=== PATIENT | female | born 1985 | race Caucasian/White ===

== ENCOUNTER 2017-08-04 18:43 | Inpatient (IN) | payer BC, OTHER ==
[~2017-08-04] VITALS: Ht 154.9 cm; Wt 73.5 kg
--- NOTE | 2017-08-04 00:17 | NUR ---
PRN ZOFRAN SL AND MAALOX PATIENT C/O HEARTRBURN AND NAUSEA BUT NO EMESIS , WILL MONITOR FOR EFFECTIVENESS
[2017-08-04 22:30] VITALS: BP 142/88
--- NOTE | 2017-08-04 22:30 | NUR ---
PRE-ADMISSION NOTE VS BP-144/88 T-99. P-88 R-18 PA-11/16. PATIENT INTOXICATED. PATIENT AMBULATORY AND GAIT IS STEADY. PATIENT 'S SPEECH CLEAR AND ANSWER QUESTIONS APPROPRIATELY. PATIENT IS ALLERGIC TO SHRIMP, NORVASC, NSAIDS AND CLINDAMYCIN. PATIENT WITH HISTORY OF STRESS INDUCED SEIZURE , LAST ONE WAS 4 WEEKS AGO. PATIENT IS HERE FOR ALCOHOL (VODKA). SHE TAKES PROSCRIBED XANAX AND OXYCODONE INTERMITTENTLY. WILL CONTINUE ADMISSION ON 3RD FLOOR.
[2017-08-04] MEDS ORDERED: LOPERAMIDE HCL 2 MG CAPSULE PO PRN ×2 (22:45)
[2017-08-04] MEDS ORDERED: MIRALAX 17 GM POWD.PACK PO PRN (22:45)
[2017-08-04] MEDS ORDERED: SUMATRIPTAN SUCCINATE 50 MG TABLET PO PRN (22:45)
[2017-08-04] MEDS ORDERED: MAGNESIUM HYDROXIDE 30 ML LIQUID UDC PO PRN (22:45)
[2017-08-04] MEDS ORDERED: hydrALAZINE HCL 50 MG TABLET PO PRN (22:45)
[2017-08-04] MEDS ORDERED: DICYCLOMINE HCL 20 MG TABLET PO PRN (22:45)
[2017-08-04] MEDS ORDERED: LORAZEPAM 1 MG TABLET PO PRN (22:45)
[2017-08-04] MEDS ORDERED: LORAZEPAM 2 MG/1 ML VIAL IM PRN (22:45)
[2017-08-04] MEDS ORDERED: MAG HYDROX/AL HYDROX/SIMETH 30 ML LIQUID UDC PO PRN (22:45)
[2017-08-04] MEDS ORDERED: ONDANSETRON 4 MG/2 ML VIAL IM PRN (22:45)
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
[2017-08-04 23:38] LABS: BASOPHILS % (AUTO) 0.6 % (0.0-2.0); EOSINOPHILS % (AUTO) 0.3 % (0.0-7.0); HEMATOCRIT 34.3 % (36.7-47.1); HEMOGLOBIN 11.4 g/dL (12.5-16.3); LYMPHOCYTES % (AUTO) 19.3 % (20.5-51.5); MEAN CORPUSCULAR HEMOGLOBIN 34.2 uug (23.8-33.4); MEAN CORPUSCULAR HGB CONC 33 g/dL (32.5-36.3); MEAN CORPUSCULAR VOLUME 102.5 fL (73.0-96.2); MONOCYTES # (AUTO) 0.3 K/uL (2.0-10.0); MONOCYTES % (AUTO) 6.1 % (0.0-11.0); NEUTROPHILS # (AUTO) 3.7 K/uL (1.8-8.9); NEUTROPHILS % (AUTO) 73.7 % (38.5-71.5); PLATELET COUNT (AUTO) 192 K/uL (152-348); RED BLOOD CELL COUNT(AUTO) 3.34 MIL/uL (4.06-5.63)
[2017-08-04] MEDS ORDERED: LORAZEPAM 1 MG TABLET PO SCH (23:45)
[2017-08-05] MEDS ORDERED: THIAMINE HCL 200 MG/2 ML VIAL IM ONE
[2017-08-05] MEDS: ONDANSETRON ODT 4 MG TAB.RAPDIS SL PRN ×2 (00:17→22:10)
[2017-08-05 00:23] LABS: ALANINE AMINOTRANSFERASE 137 U/L (16-63); ALKALINE PHOSPHATASE 270 U/L (50-136); AMYLASE 32 U/L (25-115); ASPARTATE AMINOTRANSFERASE 393 U/L (15-37); CARBON DIOXIDE 26 mmol/L (21-32); CHLORIDE 104 mmol/L (98-107); CREATININE 0.9 mg/dL (0.6-1.3); GLUCOSE 114 mg/dL (74-106); LIPASE 106 U/L (73-393); MAGNESIUM 1.3 mg/dL (1.8-2.4); POTASSIUM 3.3 mmol/L (3.5-5.1); TOTAL PROTEIN, SERUM 5.9 g/dL (6.4-8.2); UREA NITROGEN, BLOOD 7 mg/dL (7-18)
[2017-08-05 00:35] LABS: THYROID STIMULATING HORMONE 2.193 mIU/mL (0.358-3.740)
--- NOTE | 2017-08-05 01:17 | NUR ---
PRN ZOFRAN SL AND MAALOX PATIENT STATES ZOFRAN AND MAALOX, HELPFUL AND EFFECTIVE. NAUSEA CEASED.
[2017-08-05 01:43] LABS: *URINE HCG, QUAL NEGATIVE
[2017-08-05 01:50] LABS: ETHANOL < 3 MG/DL (0-0)
[2017-08-05] MEDS: ACETAMINOPHEN 325 MG TABLET PO PRN ×3 (02:15→20:52)
--- NOTE | 2017-08-05 02:15 | NUR ---
PRN TYLENOL AND ONE TIME ATIVAN PATIENT WAS GIVEN ONE TIME ATIVAN. PATIENT C/O HEADACHE AND MUSCLE ACHES. WILL MONITOR FOR EFFECTIVENESS
[2017-08-05] MEDS ORDERED: LORAZEPAM 1 MG TABLET PO SCH (02:30)
[2017-08-05 03:17] LABS: *AMPHETAMINE, URINE NEGATIVE (NEGATIVE); *CANNABINOID, URINE POSITIVE (NEGATIVE); *COCCAINE, URINE NEGATIVE (NEGATIVE); *OPIATE, URINE POSITIVE (NEGATIVE); *PHENCYCLIDINE SCREEN,URINE NEGATIVE (NEGATIVE)
[2017-08-05] MEDS ORDERED: PROP40TA7 PO (03:17)
[2017-08-05] MEDS ORDERED: TOPI100T PO (03:17)
[2017-08-05 03:18] LABS: *BARBITURATE, URINE NEGATIVE (NEGATIVE)
--- NOTE | 2017-08-05 03:19 | NUR ---
PRN HYDRALAZINE PATIENT C/O ANXIETY . BP NOTED 144/101 P- 97 . PRN HYDRALAZINE GIVEN. WILL MONITOR FOR EFFECTIVENESS, RELAXATION TECHNIQUE PROVIDED.
--- NOTE | 2017-08-05 03:31 | NUR ---
PRN IMITREX PATIENT C/O MIGRAINE HEADACHE . WILL MONITOR FOR EFFECTIVENESS
[2017-08-05 04:00] VITALS: BP 123/79
--- NOTE | 2017-08-05 04:31 | NUR ---
PRN IMITREX PATIENT STATES HEADACHE GONE. IN BED AT THIS TIME , RESTING. WILL CONTINUE TO MONITOR
--- NOTE | 2017-08-05 05:37 | NUR ---
PRN ATIVAN AND ROBAXIN ADMINISTRATION PATIENT ANXIOUS, RESTLESS, PANIC FEELING. CIWA 8 . RELAXATION TECHNIQUE PROVIDED. PATIENT C/O MUSCLE AND JOINT PAIN. WILL MONITOR FOR EFFECTIVENESS
[2017-08-05] MEDS: METHOCARBAMOL 750 MG TABLET PO PRN ×2 (05:46→22:11)
--- NOTE | 2017-08-05 06:37 | NUR ---
PRN ATIVAN AND ROBAXIN RE-ASSESSMENT PATIENT LESS ANXIOUS, IN BED RESTING, PATIENT STILL HAS MUSCLE AND JOINT PAIN, ROBAXIN INEFFECTIVE. WILL CONTINUE TO MONITOR. CIWA 5 AT THIS TIME.
--- NOTE | 2017-08-05 06:46 | NUR ---
PRN TYLENOL ADMINISTRATION PATIENT NOTED WITH TEMP-102.2. PRN TYLENOL GIVEN. COOLING MEASURES IN PROVIDED. DR. ANDRE MADE AWARE.
[2017-08-05] MEDS ORDERED: MAGNESIUM OXIDE 400 MG TABLET PO ONE (07:00)
[2017-08-05] MEDS ORDERED: POTASSIUM CHLORIDE 10 MEQ TAB.PRT.SR PO ONE (07:00)
[2017-08-05 07:47] LABS: *BLOOD, URINE NEGATIVE (NEGATIVE); *CLARITY,URINE CLOUDY (CLEAR); *COLOR,URINE Orange (YELLOW); *KETONES,URINE NEGATIVE (NEGATIVE); *PROTEIN,URINE 1+ (NEGATIVE); LEUKOCYTE ESTERASE ,URINE NEGATIVE (NEGATIVE); PH,URINE 5.5 (5.0-8.0); UGLUCOSE NEGATIVE (NEGATIVE)
--- NOTE | 2017-08-05 07:47 | NUR ---
END OF SHIFT NOTE PATIENT DID NOT SLEEP DURING SHIFT. FLUID INTAKE OF 1,100. VOIDED X 2. NO BM. PATIENT WAS GIVEN PRN ZOFRAN, , HYDRALAZINE , ATIVAN, ROBAXIN, MAALOX AND IMITREX. PATIENT NOTED WITH FEVER. UPON ADMISSION PATIENT'S TEMP WAS 99.0, AT 0400 , PATIENT HAD 100.9 AND AT 0646 TEMP WENT UP TO 102.2. TYLENOL WAS GIVEN X [address] ME[address]. [address] ANDRE WAS MADE AWARE, LABS ORDERED. PATIENT REFUSED VITAMIN B 1 IM, REFUSED FLU AND PNEUMONIA VACCINE. ENCOURAGE FLUIDS THROUGHOUT SHIFT. SAFETY MEASURES IN PLACE. CALL LIGHT IN REACH. WILL CONTINUE TO MONITOR. ENDORSED TO NEXT SHIFT FOR TYLENOL RE-ASSESSMENT .
[2017-08-05 07:49] LABS: BASOPHILS % (AUTO) 1.2 % (0.0-2.0); EOSINOPHILS % (AUTO) 0.1 % (0.0-7.0); HEMATOCRIT 32.1 % (36.7-47.1); HEMOGLOBIN 10.9 g/dL (12.5-16.3); LYMPHOCYTES # (AUTO) 1.4 K/uL (20.0-40.0); LYMPHOCYTES % (AUTO) 33.2 % (20.5-51.5); MEAN CORPUSCULAR HEMOGLOBIN 34.3 uug (23.8-33.4); MEAN CORPUSCULAR HGB CONC 34 g/dL (32.5-36.3); MEAN CORPUSCULAR VOLUME 101.4 fL (73.0-96.2); MONOCYTES # (AUTO) 0.4 K/uL (2.0-10.0); NEUTROPHILS # (AUTO) 2.2 K/uL (1.8-8.9); NEUTROPHILS % (AUTO) 54.5 % (38.5-71.5); RED BLOOD CELL COUNT(AUTO) 3.16 MIL/uL (4.06-5.63); WHITE BLOOD COUNT (AUTO) 4.1 K/uL (3.6-10.2)
[2017-08-05 07:55] LABS: PLATELET COUNT (AUTO) 134 K/uL (152-348)
[2017-08-05 08:00] VITALS: BP 146/93
[2017-08-05 08:02] LABS: BILIRUBIN,DIRECT 0.5 mg/dL (0.0-0.2); BILIRUBIN,TOTAL 0.9 mg/dL (0.2-1.0); CREATININE 0.7 mg/dL (0.6-1.3); PHOSPHOROUS 2.9 mg/dL (2.5-4.9); POTASSIUM 3.3 mmol/L (3.5-5.1); TOTAL PROTEIN, SERUM 4.9 g/dL (6.4-8.2)
--- NOTE | 2017-08-05 08:17 | NUR ---
LAB Riccardo Landry from lab called for results for lactic acid =2.4. made aware.
[2017-08-05 08:34] LABS: *BILIRUBIN,URIN 2+ (NEGATIVE)
[2017-08-05 08:37] LABS: NITRITE, URINE POSITIVE (NEGATIVE)
[2017-08-05 08:38] LABS: BACTERIA,URINE NONE SEEN /HPF (NONE SEEN); RBC,URINE 0-3 /HPF (0-3); SQUAMOUS EPITHELIAL CELL,UR MODERATE /HPF (NONE SEEN)
[2017-08-05 08:39] LABS: MUCUS,URINE MANY /LPF (0-FEW)
[2017-08-05] MEDS ORDERED: IV NS 1000 ML 1,000 ML IV ONE (08:45)
[2017-08-05] MEDS: PROPRANOLOL HCL 40 MG TABLET PO SCH ×2 (08:57→20:53)
[2017-08-05] MEDS: TOPIRAMATE 100 MG TABLET PO SCH ×2 (09:00→20:53)
[2017-08-05] MEDS: FOLIC ACID 1 MG TABLET PO SCH (09:00)
[2017-08-05] MEDS ORDERED: TUBERCULIN,PURIF.PROT.DERIV. 5 TU/0.1 ML TEST ID ONE (09:00)
[2017-08-05] MEDS: MULTIVITAMINS,THERAPEUTIC TABLET PO SCH (09:01)
[2017-08-05] MEDS: THIAMINE HCL 100 MG TABLET PO SCH (09:02)
[2017-08-05] MEDS: LORAZEPAM 1 MG TABLET PO SCH ×4 (09:02→20:52)
[2017-08-05] MEDS: LACTOBACILLUS RHAMNOSUS GG 1 EACH CAPSULE PO SCH ×2 (09:08→20:52)
[2017-08-05] MEDS ORDERED: OSELTAMIVIR PHOSPHATE 75 MG CAPSULE PO ONE (09:15)
--- NOTE | 2017-08-05 09:30 | NUR ---
START OF SHIFT Report received from shift coordinator nurse. Patient is alert and oriented X4. Received report that patient has high temp and received Tylenol on previous shift. Patients temp at 08:00 101.5. Swab done for influenza, strep and throat culture tests. Patient received AM meds. CIWA: Reports increasing anxiety for the isolation as she wants to go out and smoke. Patient reports anxiety, nausea, sweating, and headache. Refused IV access and IV fluids to be administered, meteorologist in charge and MD aware. Patient teaching provided for the importance of getting her the fluids but remains hesitant at this time. Patient agreed to take her One time does of tamiflu.
--- NOTE | 2017-08-05 10:09 | NUR ---
CLINICAL PHARMACY NOTE: VANCOMYCIN PHARMACY TO DOSE Subjective: To start vanco for this 31 y/o female for empiric therapy (spiked fever) Objective: height 154.9 cm weight 73.5 kg BUN 5 Scr 0.7 wbc 4.1 temp 101.5 Assessment/Plan Will start vanco 1250mg IVPB q13h for predicted vanco trough level of 16.4 mcg/ml at steady state. 1st dose is due today at 1030. Plan to draw vanco trough level before 4th dose (not yet ordered). Will monitor renal function & adjust mireille dose if needed. Will follow
[2017-08-05] MEDS ORDERED: VANCOMYCIN IV 1,250 MG in IV DEXTROSE 5% 500 ML IV SCH ×2 (10:30→13:30)
[2017-08-05] MEDS: LORAZEPAM 1 MG TABLET PO PRN ×4 (10:53→22:11)
--- NOTE | 2017-08-05 10:53 | NUR ---
PRN ATIVAN PO Patient complained of unresolved and increasing anxiety. Patient noted crying as well. CIWA 13. PRN Ativan 2mg po given.
[2017-08-05] MEDS: PIPERACILLIN/TAZOBACTAM/D5W 3.375 G in PREMIXED 1 EACH IV SCH ×2 (11:25→17:29)
--- NOTE | 2017-08-05 11:53 | NUR ---
REASSESSMENT PRN ATIVAN PO Patient reported anxiety improved. CIWA 7.
[2017-08-05 12:00] VITALS: BP 117/77
[2017-08-05] MEDS: PANTOPRAZOLE SODIUM 40 MG VIAL IV SCH (12:05)
--- NOTE | 2017-08-05 14:12 | NUR ---
PRN ZOFRAN IM Patient complained of nausea. PRN zofran IM was given. Will continue to monitor patient.
--- NOTE | 2017-08-05 14:42 | NUR ---
REASSESSMENT PRN ZOFRAN IM INJECTION Patient reports nausea improved. Med effective.
--- NOTE | 2017-08-05 14:56 | NUR ---
PRN ATIVAN PO Patient complained of unresolved and increasing anxiety. Patient noted crying as well. CIWA 13. PRN Ativan 2mg po given.
--- NOTE | 2017-08-05 15:56 | NUR ---
REASSESSMENT PRN ATIVAN PO Patient reported anxiety improved. CIWA 8.
[2017-08-05 16:00] VITALS: BP 141/90
[2017-08-05] MEDS: NICOTINE 21 MG/24HR PATCH TD SCH (16:13)
[2017-08-05] MEDS: NICOTINE POLACRILEX 4 MG GUM-PK OF TEN BC PRN (17:25)
--- NOTE | 2017-08-05 17:25 | NUR ---
PRN NICOTINE GUM Patient was craving to smoke. PRN nicotine gum given. Will continue to monitor patient.
--- NOTE | 2017-08-05 17:26 | NUR ---
PRN ATIVAN PO Patient complained of unresolved anxiety. Patient noted agitated, restless, CIWA = 15. PRN ativan 2mg po given. Will continue to monitor patient.
[2017-08-05] MEDS: IV NS 1000 ML 1,000 ML IV SCH (17:29)
--- NOTE | 2017-08-05 18:25 | NUR ---
REASSESSMENT PRN NICOTINE GUM Patient did not like the nicotine gum and complained of nausea after trying it. Patient discarded it. Not effective.
--- NOTE | 2017-08-05 18:26 | NUR ---
REASSESSMENT PRN ATIVAN PO Patient reported anxiety improved. CIWA 6.
--- NOTE | 2017-08-05 19:15 | NUR ---
Start of Shift Note: Received patient from day shift nurse. Patient is a 31 y.o female admitted on 08/04/17 for medically supervised withdrawal from ETOH, Opiates and Benzo's. Patient is alert & oriented x4. Patient is ambulatory with a steady gait. Patient is labile, has anxious & irritable mood, appears flushed and has clammy skin. Patient presented with sweating, chills, restlessness, nausea, reports 7/10 generalized body aches, and noted with fine tremors. Patient had some test done today and pt noted to be positive for influenza. Patient had IV inserted on left hand, patent and intact with running 0.9% NS at 125 cc/hr and on ATB Vancomycin & Zosyn. Patient tolerating IV ATB well. Patient also placed on isolation precaution. Pt on Ativan taper and tolerating well. Last CIWA 6. Pt received PRN Zofran, Nicotine patch and Ativan 3x during day shift. Encourage pt to increase fluid intake. Educated patient of current plan of care for the night. Safety measures in place. Will continue to monitor patient.
--- NOTE | 2017-08-05 19:26 | NUR ---
END OF SHIFT Patient on Ativan taper. Patient placed on isolation droplet precaution, positive flu test. Patient was provided with frequent teaching on droplet isolation as patient wants to come out of the room and go out to smoke cigarettes. Patient also requested to speak to his mother and verbalized desire to go home instead. MD, charge nurse and deputy director of nursing were aware of patients situation and spoke to patient. Patient also noted labile, agitated, and crying. PRN ativan 2MG given X3 this shift. Patient also offered nicotine patch and gum which she initially declined but later agreed to have the MD place the orders. Patient initially refused to start an IV access and receive IV fluids and antibiotic IV but later agreed having discussion with the deputy director of nursing. IV access started on L hand, g24, patent and dressing c/d/i. Patient received NS 0.9% bolus 1000 ml, followed by continuous infusion at 125ml/hr and scheduled antibiotic IVs given. Patient made requests to contact her mother and was provided with assistance. She requested some personal toiletries as well. Last CIWA 6. Last temp taken was 99.2 All needs met at this time. Call lights within reach and bed at low setting. business insurance agentoperations supervisor 2nd shift continue to monitor patient.
[2017-08-05 20:00] VITALS: BP 136/96
--- NOTE | 2017-08-05 20:52 | NUR ---
PRN Tylenol Patient noted with a tvpg=[id number]. Patient reports slight chills at this time. PRN Tylenol administered as ordered. Will continue to monitor patient.
[2017-08-05] MEDS: OSELTAMIVIR PHOSPHATE 75 MG CAPSULE PO SCH (21:02)
--- NOTE | 2017-08-05 21:52 | NUR ---
PRN Reassessment PRn medication effective. Temp 99.1 noted at this time. Will continue to monitor patient.
--- NOTE | 2017-08-05 22:11 | NUR ---
PRN Ativan, Robaxin & Zofran Patient noted to be very emotional & crying. Pt stated " I want to leave", redirected patient multiple times by staff members and finally convinced her to stay for the night. Pt is anxious and irritable, presented with generalized body aches, nausea, sweating, & fine tremors. CIWA 13 noted. PRN Ativan 2mg, Robaxin & Zofran administered as ordered. Will monitor for effectiveness of medication.
--- NOTE | 2017-08-05 23:11 | NUR ---
PRN Reassessment Pt awake in bed and verbalized slight improved in anxiety. Pt stable at this time. Safety measures in place. Will continue to monitor patient.
--- NOTE | 2017-08-05 23:11 | NUR ---
PRN Reassessment Patient verbalized improved nausea and decreasd in pain from 7/10 to 3/10. Patient in bed and appears comfortable. safety measures in place. Will continue to monitor patient.
[2017-08-06] VITALS: BP 133/88
[2017-08-06] MEDS ORDERED: VANCOMYCIN IV 1,250 MG in IV DEXTROSE 5% 500 ML IV SCH (00:30)
[2017-08-06] MEDS: LORAZEPAM 1 MG TABLET PO PRN ×2 (00:36→03:12)
--- NOTE | 2017-08-06 00:36 | NUR ---
PRN Ativan 2mg Patient attempted to discontinue IV access by herself and tried to leave room. Patient educated of disease process and compliance of isolation protocol. Pt stated "I am bored". Patient noted again with increased anxiety and agitation. CIWA 12 at this time. PRN Ativan 2mg PO administered as ordered. Will monitor for effectiveness of medication.
--- NOTE | 2017-08-06 01:36 | NUR ---
PRN Reassessment Patient still awake at this time. Patient verbalized decreased in anxiety after medication administration. Pt in bed and watching TV. Pt appears comfortable. Will continue to monitor patient.
[2017-08-06 03:10] VITALS: BP 123/90
[2017-08-06] MEDS: NICOTINE POLACRILEX 4 MG GUM-PK OF TEN BC PRN (03:12)
--- NOTE | 2017-08-06 03:12 | NUR ---
PRN Ativan 2mg & Nicotine gum Patient still awake at this time and noted with increased anxiety. Patient is craving to go to smoke and noted to be anxious and irritable. Patient continues on contact isolation. PRN Ativan 2mg and Nicotine gum administered as ordered. Will continue to monitor patient.
[2017-08-06] MEDS: PIPERACILLIN/TAZOBACTAM/D5W 3.375 G in PREMIXED 1 EACH IV SCH (03:15)
--- NOTE | 2017-08-06 04:12 | NUR ---
PRN Reassessment Patient still noted with anxiety. Pt still verbalized wanting to leave in the morning after she talks to the doctor. Pt stated " I am not ready to for this, I don't want to miss uzma together with my grandma". Educated patient the risk and benefits of completing treatment. Patient still refused. safety measures provided. Will continue to monitor patient.
[2017-08-06] MEDS ORDERED: PANTOPRAZOLE SODIUM 40 MG TABLET.DR PO SCH (07:00)
--- NOTE | 2017-08-06 07:06 | NUR ---
End of Shift Note: Patient is a 31 y.o female admitted on 08/04/17 for medically supervised withdrawal from ETOH, Opiates and Benzos. patient remains alert & oriented x4. Patient continues on her Ativan taper with no ARE noted. Last CI 12. Pt received PRN Robaxin, Zofran, Tylenol, Nicotine gum, & Ativan 2mg 3x during my shift. Pt presented with continues anxiety throughout the night, and did not sleep at all during my shift. Patient remained compliant with medications including PO and IV meds. Pt continues to receive IV fluids 0.9% NS at 125cc/hr. On contact isolation precaution as ordered for positive influenza. Pt had an episode of increased temperature and was given Tylenol and was effective. Continue to closely monitor vitals and s/s of withdrawal. Encourage pt to increase fluid intake. Pt had a fluid intake of 1000ml, Voided 4x with no bowel movement. All needs attended & met. Safety measures in place. Will continue to monitor patient. Addendum: 08/06/17 at 0717 by DIDIER CHONG RN ERROR: Pt on droplet precaution not contact
--- NOTE | 2017-08-06 07:10 | NUR ---
Start of Shift Ob Gyn Physician Assistant received report on 31 year old female admitted to [facility] on 08/04/17 for medical management of ETOH, Opiate and Benzodiazepine withdrawals. Pt endorses allergies to NSAIDS, Shrimp, Norvasc and Clindamycin, eats a regular diet and is a full code. PMH of Gastric sleeve, , HTN and migraines. PPH of anxiety, depression, PTSD, Bipolar and Panic Attacks. Pt also has a history of stress induced seizures. Pt currently on Ativan taper, tolerating well with last CIWA 12, recorded by NOC, per report. Pt currently with 24 gauge IV to left hand with 125 ml/hr of NS. Ob Gyn Physician Assistant encounters pt in pts room. Pt is A/O x4 and makes her needs known, needy and entitled. Pt is focused on AMA, due to room and patio restrictions because of testing positive for Influenza. Pt has made several requests of several staff members to facilitate her AMA discharge. Pt has a flat affect with an anxious mood. Staff splitting and demanding. Pt lacks insight and has a concrete thought pattern. Bed in low position with wheels locked and side rails up x2. Will continue to monitor, support and encourage according to plan of care. Addendum: 08/06/17 at 0902 by OUMAR MEDINA RN Pt was administered PRN medication of Ativan(anxiety) x3, Tylenol(fever), Nicotine gum, Robaxin(muscle aches) and Zofran(nausea) per NOC report.
[2017-08-06] MEDS: IV NS 1000 ML 1,000 ML IV SCH ×2 (07:20→07:21)
--- NOTE | 2017-08-06 07:22 | NUR ---
Non Administer Medications Pharmacy Helper performed a non-administration on NS bags, to be given on previous shift. Will continue to monitor, support and encourage according to plan of care
[2017-08-06 08:06] LABS: BASOPHILS % (AUTO) 0.7 % (0.0-2.0); EOSINOPHILS % (AUTO) 0.1 % (0.0-7.0); HEMATOCRIT 33.3 % (31.2-41.9); HEMOGLOBIN 11.2 g/dL (10.9-14.3); LYMPHOCYTES # (AUTO) 0.8 K/uL (20.0-40.0); LYMPHOCYTES % (AUTO) 30.8 % (20.5-51.5); MEAN CORPUSCULAR HEMOGLOBIN 34.3 uug (24.7-32.8); MEAN CORPUSCULAR HGB CONC 34 g/dL (32.3-35.6); MEAN CORPUSCULAR VOLUME 102.3 fL (75.5-95.3); MONOCYTES # (AUTO) 0.3 K/uL (2.0-10.0); MONOCYTES % (AUTO) 10.4 % (0.0-11.0); NEUTROPHILS # (AUTO) 1.6 K/uL (1.8-8.9); PLATELET COUNT (AUTO) 120 K/uL (179-408); RED BLOOD CELL COUNT(AUTO) 3.26 MIL/uL (3.63-4.92); WHITE BLOOD COUNT (AUTO) 2.7 K/uL (3.8-11.8)
[2017-08-06] MEDS: TOPIRAMATE 100 MG TABLET PO SCH (08:18)
[2017-08-06] MEDS: MULTIVITAMINS,THERAPEUTIC TABLET PO SCH (08:18)
[2017-08-06] MEDS: FOLIC ACID 1 MG TABLET PO SCH (08:18)
[2017-08-06] MEDS: THIAMINE HCL 100 MG TABLET PO SCH (08:18)
[2017-08-06] MEDS: OSELTAMIVIR PHOSPHATE 75 MG CAPSULE PO SCH (08:19)
[2017-08-06] MEDS: PROPRANOLOL HCL 40 MG TABLET PO SCH (08:19)
[2017-08-06] MEDS: NICOTINE 21 MG/24HR PATCH TD SCH (08:20)
[2017-08-06 08:27] LABS: BILIRUBIN,DIRECT 0.5 mg/dL (0.0-0.2); BILIRUBIN,TOTAL 0.8 mg/dL (0.2-1.0); CREATININE 0.7 mg/dL (0.6-1.3); MAGNESIUM 1.6 mg/dL (1.8-2.4); PHOSPHOROUS 2.8 mg/dL (2.5-4.9); POTASSIUM 3.1 mmol/L (3.5-5.1); TOTAL PROTEIN, SERUM 5.6 g/dL (6.4-8.2)
[2017-08-06 08:30] VITALS: BP 150/96
--- NOTE | 2017-08-06 08:45 | NUR ---
IV Removal Needlemaker received pt's Peripheral IV from left hand, with catheter intact. Pt tolerated without incident. Will continue to monitor, support and encourage according to plan of care.
[2017-08-06] MEDS: PANTOPRAZOLE SODIUM 40 MG VIAL IV SCH (09:00)
[2017-08-06] MEDS ORDERED: LORAZEPAM 1 MG TABLET PO SCH (09:00)
[2017-08-06] MEDS: LACTOBACILLUS RHAMNOSUS GG 1 EACH CAPSULE PO SCH (09:03)
[2017-08-06 09:07] LABS: BAND % (MANUAL) 3 % (0-10); LYMPHOCYTES % (MANUAL) 29 % (20-40); MONOCYTES % (MANUAL) 9 % (2-10); NEUTROPHILS % (MANUAL) 59 % (42-75)
[2017-08-06] MEDS ORDERED: POTASSIUM CHLORIDE 20 MEQ TAB.PRT.SR PO ONE (09:30)
[2017-08-06] MEDS ORDERED: MAGNESIUM OXIDE 400 MG TABLET PO ONE (09:30)
--- NOTE | 2017-08-06 10:25 | NUR ---
AMA Discharge Smelter Liner and staff educated pt on importance of following MD orders and the need for treatment. Pt educated on need for IV medication to help with infection. Pt also educated on importance of isolation due to the pt being positive for Influenza. Pt perseverates on getting home to visit grandma, whom pt states is sick. Pt even states she will come back to [place] after seeing her family. Pt visited with MD whom advised pt, if pt was to discharge it will be AMA. Pt denies any HI/SI or A/VH or any associated symptoms. Pt is A/O x4 and makes her needs known. Flat affect with anxious mood. Clear of thought and speech, concrete in thought process. Pt had all personal belongings returned, with no home medications to return. Pt discharged per ambulation, escorted to the lobby exit and exits the property.
[2017-08-06 11:11] LABS: HEPATITIS B SURFACE AG Negative (Negative)
[2017-08-07] MEDS ORDERED: LORAZEPAM 1 MG TABLET PO SCH (09:00)
[2017-08-08] MEDS ORDERED: LORAZEPAM 1 MG TABLET PO SCH (09:00)
[2017-08-09] MEDS ORDERED: LORAZEPAM 1 MG TABLET PO SCH (09:00)
== END 2017-08-06 10:25 | disposition left against medical advice (07) | DRG 894 ==
LOC: EDSEX 21:54 → SRC 21:54
PROVIDERS: ADMIT Internal Medicine; ATTEND Internal Medicine
PROC: HZ2ZZZZ Detoxification Services for Substance Abuse Treatment (ICD-10-PCS; principal; 2017-08-04)
PROC: HZ51ZZZ Individual Psychotherapy for Substance Abuse Treatment, Behavioral (ICD-10-PCS; 2017-08-06)
DX: F10.232 Alcohol dependence with withdrawal with perceptual disturbance (principal); R65.20 Severe sepsis without septic shock; D69.6 Thrombocytopenia, unspecified; A41.9 Sepsis, unspecified organism; B97.89 Other viral agents as the cause of diseases classified elsewhere; K70.9 Alcoholic liver disease, unspecified; F41.0 Panic disorder [episodic paroxysmal anxiety]; G43.909 Migraine, unspecified, not intractable, without status migrainosus; Y90.0 Blood alcohol level of less than 20 mg/100 ml; Q76.0 Spina bifida occulta; Z91.89 Other specified personal risk factors, not elsewhere classified; Z83.3 Family history of diabetes mellitus; Z81.1 Family history of alcohol abuse and dependence; Z98.84 Bariatric surgery status; G47.00 Insomnia, unspecified; G89.29 Other chronic pain; M54.5 Low back pain; E83.42 Hypomagnesemia; D53.9 Nutritional anemia, unspecified; E87.6 Hypokalemia; J11.1 Influenza due to unidentified influenza virus with other respiratory manifestations; F31.9 Bipolar disorder, unspecified; F17.210 Nicotine dependence, cigarettes, uncomplicated; I15.9 Secondary hypertension, unspecified; F12.10 Cannabis abuse, uncomplicated; F11.10 Opioid abuse, uncomplicated; F13.90 Sedative, hypnotic, or anxiolytic use, unspecified, uncomplicated; M50.80 Other cervical disc disorders, unspecified cervical region
CPT/HCPCS: 36415; 71045; 80307; 80346; 80349; 80361; 83605; 83690; 83735; 84100; 84443; 84703; 85025; 86403; 86580; 86592; 86705; 86803; 87040; 87070; 87086; 87340; 87400; 87806; C9113; G0480; J2405; J2543; J3370; J7030; J7060; Q0162